=== PATIENT | male | born 1980 | race Two or more races ===

== ENCOUNTER 2017-07-08 09:14 | Inpatient (IN) | payer OTHER ==
[~2017-07-08] VITALS: Ht 181.6 cm; Wt 135.6 kg
--- NOTE | 2017-07-08 | NUR ---
RN OPEN NOTES RECEIVED PATIENT AWAKE IN BED. A/O 4. NO SIGNS OF DISTRESS OR DISCOMFORT. BREATHING EVEN AND UNLABORED. NO IV ACCESS. BED IN LOW LOCKED POSITION WITH SIDE RAILS X2. CALL LIGHT WITHIN REACH. WILL CONTINUE TO MONITOR. Addendum: 07/09/17 at 0159 by TIMO MCRAE RN ERROR WRONG TIME DOCUMENTED
[2017-07-08 14:20] VITALS: BP 108/72
--- NOTE | 2017-07-08 14:20 | NUR ---
CLINICAL TRIAL ADMISSION NOTES ADMITTED PT FOR CLINICAL TRIAL.PT IS ALERT AND ORIENTED X4.VERBALLY RESPONSIVE.SKIN INTACT.AMBULATES AD [place].ORIENTED TO HIS ROOM AND HOSPITAL POLICIES.BELONGINGS CHECKED AND ALL MEDS BROUGHT TO THE PHARMACY.DENIES ANY DISTRESS.PT IS PLEASANT TO STAFF WITHOUT ANY SUICIDAL IDEATIONS.CALL LIGHT PLACED WITHIN REACH.
[2017-07-08 16:00] VITALS: BP 108/72
[2017-07-08] MEDS: CHOLECALCIFEROL 1,000 UNIT TABLET (VIT D3) PO SCH (16:30)
[2017-07-08] MEDS ORDERED: MAGNESIUM HYDROXIDE 30 ML UDC PO PRN (17:00)
[2017-07-08] MEDS ORDERED: LORAZEPAM 1 MG TABLET FOR AGITATION PO PRN (17:00)
[2017-07-08] MEDS ORDERED: IBUPROFEN 200 MG TABLET PO PRN (17:00)
[2017-07-08] MEDS ORDERED: MAG HYDROX/AL HYDROX/SIMETH 30 ML UDC PO PRN (17:00)
[2017-07-08] MEDS ORDERED: ACETAMINOPHEN ES 500 MG TABLET PO PRN (17:00)
--- NOTE | 2017-07-08 18:00 | NUR ---
PT WALKING ALONG THE HALLWAY DENYING ANY PAIN OR DISTRESS.SEEN BY DR OLMOS WITH NO NEW ORDERS.
--- NOTE | 2017-07-08 18:05 | NUR ---
PT REFUSED VITAMIN D PO SAYING HE ALREADY TOOK ONE THIS AM.
--- NOTE | 2017-07-08 19:25 | NUR ---
RN OPEN NOTES RECEIVED PATIENT AWAKE IN BED. A/O 4. NO SIGNS OF DISTRESS OR DISCOMFORT. BREATHING EVEN AND UNLABORED. NO IV ACCESS. BED IN LOW LOCKED POSITION WITH SIDE RAILS X2. CALL LIGHT WITHIN REACH. WILL CONTINUE TO MONITOR.
[2017-07-08 20:00] VITALS: BP 114/72
[2017-07-08] MEDS: OLANZAPINE 10 MG TABLET PO SCH (21:52)
[2017-07-08] MEDS: risperiDONE 1 MG TABLET PO SCH (21:52)
[2017-07-08] MEDS ORDERED: ZOLPIDEM TARTRATE 10 MG TABLET PO PRN (22:00)
[2017-07-08] MEDS ORDERED: SERTRALINE HCL 50 MG TABLET PO SCH (22:00)
--- NOTE | 2017-07-09 06:58 | NUR ---
RN CLOSING NOTES PATIENT RESTING IN BED. A/O 4. NO SIGNS OF DISTRESS OR DISCOMFORT. BREATHING EVEN AND UNLABORED. NO IV ACCESS. ALL NEEDS MET. NO SIGNIFICANT CHANGES THROUGH THE NIGHT. BED IN LOW LOCKED POSITION WITH SIDE RAILS X2. CALL LIGHT WITHIN REACH. WILL ENDORSE TO AM SHIFT FOR GITA.
[2017-07-09 08:00] VITALS: BP 106/69
--- NOTE | 2017-07-09 08:00 | NUR ---
MS RN CLINICAL TRIAL AM NOTES PATIENT RESTING IN BED. A/OX4. NO SIGNS OF DISTRESS OR DISCOMFORT. BREATHING EVEN AND UNLABORED. NO IV ACCESS. COMPLIANT WITH HOSPITAL RULES AND REGULATIONS.TOOK A SHOWER.NEEDS MET. BED IN LOW LOCKED POSITION WITH SIDE RAILS X2. CALL LIGHT WITHIN REACH.
[2017-07-09] MEDS ORDERED: RISP0.253 PO (09:23)
[2017-07-09] MEDS ORDERED: SERT100T12 PO (09:23)
[2017-07-09] MEDS ORDERED: OLAN20TA3 PO (09:23)
[2017-07-09] MEDS ORDERED: BENZ1TAB7 PO (09:23)
[2017-07-09] MEDS: CHOLECALCIFEROL 1,000 UNIT TABLET (VIT D3) PO SCH (09:49)
[2017-07-09] MEDS: MULTIVITAMINS,THERAGRAN 1 UDTAB TABLET PO SCH (09:49)
[2017-07-09] MEDS: BENZTROPINE MESYLATE (1 MG) 1 MG TABLET PO SCH ×2 (09:49→17:46)
[2017-07-09 16:00] VITALS: BP 112/64
--- NOTE | 2017-07-09 18:00 | NUR ---
PT PLEASANT AND COMPLIANT WITH STAFF .
--- NOTE | 2017-07-09 19:50 | NUR ---
RN OPENING NOTES RECEIVED REPORT FROM DAYSHIFT TAYLOR MARCOS. FOUND Pt AWAKE, WATCHING TV. NO S/S OF ACUTE DISTRESS OR SOB NOTED. Pt IS A/OX4, VERBAL, ABLE TO MAKE NEEDS KNOWN. NO IV ACCESS. HERE FOR CLINICAL TRIALS. SAFETY MEASURES IN PLACE. BED LOW, LOCKED, HOB ELEVATED, SIDE RAILS UP, CALL LIGHT AND BEDSIDE TABLE WITHIN REACH. WILL CONTINUE TO MONITOR Pt THROUGHOUT THE NIGHT FOR SAFETY.
[2017-07-09 20:00] VITALS: BP 124/70
[2017-07-09 21:00] VITALS: BP 124/70
[2017-07-09] MEDS: risperiDONE 1 MG TABLET PO SCH (21:13)
[2017-07-09] MEDS: OLANZAPINE 10 MG TABLET PO SCH (21:14)
--- NOTE | 2017-07-10 06:55 | NUR ---
RN CLOSING NOTES NO SIGNIFICANT CHANGES NOTED DURING THE NIGHT. NO S/S OF ACUTE DISTRESS OR SOB NOTED DURING SHIFT. ALL NEEDS MET AND ATTENDED TO. SAFETY MEASURES IN PLACE. WILL ENDORSE TO DAYSHIFT RN FOR Pt's GITA.
--- NOTE | 2017-07-10 07:25 | NUR ---
MS RN OPENING NOTES RECEIVED PT FROM NIGHTSHIFT NURSE IN STABLE CONDITION. PT IS A/O X3. NO SOB OR SIGNS OF DISTRESS NOTED. BREATHING IS EVEN AND UNLABORED. PT DENIES ANY PAIN AT THIS TIME. BED IN LOW LOCKED POSITION . SIDE RAILS UP X2, CALL LIGHT WITHIN REACH. WILL CONTINUE TO MONITOR
[2017-07-10 08:00] VITALS: BP 126/73
[2017-07-10] MEDS: MULTIVITAMINS,THERAGRAN 1 UDTAB TABLET PO SCH (09:45)
[2017-07-10] MEDS: BENZTROPINE MESYLATE (1 MG) 1 MG TABLET PO SCH ×2 (09:45→17:18)
[2017-07-10] MEDS: CHOLECALCIFEROL 1,000 UNIT TABLET (VIT D3) PO SCH (09:45)
[2017-07-10 16:00] VITALS: BP 99/67
--- NOTE | 2017-07-10 18:53 | NUR ---
MS RN CLOSING NOTES ALL DUE MED GIVEN AND ORDERS CARRIED OUT ACCORDINGLY. NO ACUTE CHANGES IN CONDITION SINCE START OF SHIFT. WILL ENDORSE TO NIGHTSHIFT NURSE FOR GITA
--- NOTE | 2017-07-10 19:35 | NUR ---
rn initial notes: received report from rn afsatu, pt in bed, awake, a/o x3, respiration even and unlabored, denies any pain or discomfort at this time, no iv access per md, pt on clinical trial, wearing own clothes, safety precautions for fall initiated call light in reach, will continue to monitor
[2017-07-10 20:00] VITALS: BP 115/66
[2017-07-10] MEDS: risperiDONE 1 MG TABLET PO SCH (21:53)
[2017-07-10] MEDS: OLANZAPINE 10 MG TABLET PO SCH (21:53)
--- NOTE | 2017-07-10 22:00 | NUR ---
rn notes: pt denies any plan of hurting himself, medication compliant
--- NOTE | 2017-07-11 06:53 | NUR ---
rn closing notes: pt in bed, awake, remains calm cooperative and med compliant, pt admit to still having v/a hallucination, denies any si. needs attended. total hours of sleep is 8hrs. vs remains stable, needs attended. safety precautions for fall remains engaged, call light in reach, will endorse to day rn for eleni.
--- NOTE | 2017-07-11 07:21 | NUR ---
MS RN OPENING NOTES RECEIVED PT FROM NIGHTSHIFT NURSE IN STABLE CONDITION. PT IS A/O X3. NO SOB OR SIGNS OF DISTRESS NOTED. BREATHING IS EVEN AND UNLABORED. PT IS SLEEPING AT THIS TIME BUT IS EASILY AROUSABLE. HE DENIES ANY PAIN AT THIS TIME. BED IN LOW LOCKED POSITION, SIDE RAILS UP X2, CALL LIGHT WITHIN REACH. WILL CONTINUE TO MONITOR
[2017-07-11 08:00] VITALS: BP 121/71
[2017-07-11] MEDS: MULTIVITAMINS,THERAGRAN 1 UDTAB TABLET PO SCH (09:04)
[2017-07-11] MEDS: BENZTROPINE MESYLATE (1 MG) 1 MG TABLET PO SCH ×2 (09:04→17:54)
[2017-07-11] MEDS: CHOLECALCIFEROL 1,000 UNIT TABLET (VIT D3) PO SCH (09:04)
[2017-07-11 20:00] VITALS: BP 114/68
--- NOTE | 2017-07-11 20:00 | NUR ---
RN NOTES RECEIVED PT AWAKE ON BED, A/OX3, CALM AND COOPERATIVE, PLEASANT TO TALKED TOO, DENIES PAIN,CALL LIGHT WITHIN REACH, SDIERAILS PX2 CONTINUE TO MONITOR
[2017-07-11] MEDS: OLANZAPINE 5 MG TABLET PO SCH (21:33)
[2017-07-11] MEDS: risperiDONE 1 MG TABLET PO SCH (21:33)
--- NOTE | 2017-07-12 07:00 | NUR ---
RN NOTES SLEEPING BUT AROUSABLE, DENIES PAIN, NO SOB, CALM AND COOPERATIVE, PT. NEEDS ATTENDED
--- NOTE | 2017-07-12 07:30 | NUR ---
MS/RN Patient received Patient received from tie bucker. No needs at this time, call light within reach, will continue to monitor and ensure safety.
[2017-07-12 08:00] VITALS: BP 123/68
[2017-07-12] MEDS: BENZTROPINE MESYLATE (1 MG) 1 MG TABLET PO SCH ×2 (08:02→16:18)
[2017-07-12] MEDS: CHOLECALCIFEROL 1,000 UNIT TABLET (VIT D3) PO SCH (08:02)
[2017-07-12] MEDS: MULTIVITAMINS,THERAGRAN 1 UDTAB TABLET PO SCH (08:02)
[2017-07-12 08:25] VITALS: BP 123/68
--- NOTE | 2017-07-12 08:41 | NUR ---
MS/RN Medications Morning medications administered as ordered.
--- NOTE | 2017-07-12 13:51 | NUR ---
MS/RN Behavior No behavior issues or concerns, will continue to monitor.
[2017-07-12 16:00] VITALS: BP 132/72
[2017-07-12 16:42] VITALS: BP 132/72
--- NOTE | 2017-07-12 18:04 | NUR ---
MS/RN End note No changes in plan of care. Behavior has remained appropriate, no outbursts or concerns. Will continue to monitor and endorse to manganese heater.
[2017-07-12 20:00] VITALS: BP 133/81
--- NOTE | 2017-07-12 20:00 | NUR ---
RN NOTES PATIENT IS ALERT AND ORIENTED X4, CALM, NO SOB, NO RESPIRATORY DISTRESS, HEARING VOICES AT THIS TIME, PER PATIENT NOT BOTHERING MUCH, WITH EPISODE OF VISUAL HALLUCINATIONS. NONE MENTIONED AT THIS TIME. NEEDS ATTENDED, CALL LIGHT WITHIN REACH.
--- NOTE | 2017-07-12 20:00 | NUR ---
RN NOTES SEEN BY DR. HENRIQUEZ WITH NEW ORDERS
[2017-07-12] MEDS: OLANZAPINE 5 MG TABLET PO SCH (21:35)
[2017-07-12] MEDS: risperiDONE 1 MG TABLET PO SCH (21:35)
--- NOTE | 2017-07-13 06:49 | NUR ---
RN NOTES PATIENT IS AWAKE AND ALERT, NO SOB, DENIES ABDOMINAL PAIN AT THIS TIME, NEEDS ATTENDED, CALL LIGHT WITHIN REACH.
--- NOTE | 2017-07-13 06:49 | NUR ---
RN NOTES PATIENT IN BED, RESTING COMFORTABLY, RESPIRATION EVEN AND UNLABORED, SLEPT FOR 7 HOURS, NO BEHAVIORAL DISTURBANCE DURING SHIFT, COMPLIANT WITH MEDICATIONS. KEPT SAFE, CALL LIGHT WITHIN REACH.
--- NOTE | 2017-07-13 07:30 | NUR ---
MS/RN Patient received Patient received from manager night. No needs at this time, call light within reach, will continue to monitor and ensure safety.
[2017-07-13 08:00] VITALS: BP 125/81
[2017-07-13] MEDS: CHOLECALCIFEROL 1,000 UNIT TABLET (VIT D3) PO SCH (08:02)
[2017-07-13] MEDS: MULTIVITAMINS,THERAGRAN 1 UDTAB TABLET PO SCH (08:02)
[2017-07-13] MEDS: BENZTROPINE MESYLATE (1 MG) 1 MG TABLET PO SCH ×2 (08:02→16:48)
--- NOTE | 2017-07-13 09:14 | NUR ---
MS/RN Medications Morning medications administered as ordered, no difficulty swallowing.
--- NOTE | 2017-07-13 13:00 | NUR ---
MS/RN Behavior Behavior remains appropriate, no outbursts or concerns.
[2017-07-13 16:00] VITALS: BP 103/67
[2017-07-13 16:04] VITALS: BP 103/67
--- NOTE | 2017-07-13 18:15 | NUR ---
MS/RN End note Calm and cooperative with treatment plan, all medications administered as ordered. Will continue to monitor and endorse to welder 2nd shift. Patient informed nursing staff that while showering today, when getting up, he banged head on hand rail in bathroom. No apparent injury noted, will inform Dr Jiménez.
--- NOTE | 2017-07-13 19:33 | NUR ---
RN NOTES SEEN BY DR. OLMOS
[2017-07-13 20:00] VITALS: BP 134/83
[2017-07-13 20:04] VITALS: BP 134/83
--- NOTE | 2017-07-13 20:11 | NUR ---
RN NOTES PATIENT IN BED, WATCHING TV, ALERT AND ORIENTED X4, CALM, COOPERATIVE, PLEASANT, REPORTED BUMPING HEAD AGAINST THE WALL, ON ASSESSMENT TO BACK OF HEAD, NO REDNESS, NO BUMP NOTED, DENIES HEADACHE. REFUSED MOTRIN. SEEN BY DR. OLMOS EARLIER. DENIES VISUAL AND AUDITORY HALLUCINATIONS AT THIS TIME. REMINDED PATIENT IF HE NEEDS ANYTHING, NOTIFY THE NURSE. KEPT SAFE AND COMFORTABLE, CALL LIGHT WITHIN REACH.
[2017-07-13] MEDS: OLANZAPINE 2.5 MG TABLET PO SCH (21:59)
[2017-07-13] MEDS: risperiDONE 1 MG TABLET PO SCH (21:59)
--- NOTE | 2017-07-14 06:52 | NUR ---
RN NOTES PATIENT IN BED, RESTING COMFORTABLY IN BED, SLEPT FOR 7.5 HOURS. NO BEHAVIOR DISTURBANCE DURING SHIFT, COMPLIANT AND COOPERATIVE. KEPT SAFE AND COMFORTABLE, CALL LIGHT WITHIN REACH.
[2017-07-14 08:00] VITALS: BP 128/75
--- NOTE | 2017-07-14 08:00 | NUR ---
CLINICAL TRIAL RN AM NOTES PATIENT IS ALERT AND ORIENTED X4, CALM, NO SOB, NO RESPIRATORY DISTRESS, DENIES HEARING VOICES WITH NO EPISODE OF VISUAL HALLUCINATIONS. COMPLIANT WITH MEDS AND TX.NEEDS ATTENDED, CALL LIGHT WITHIN REACH.
[2017-07-14] MEDS: BENZTROPINE MESYLATE (1 MG) 1 MG TABLET PO SCH ×2 (08:32→17:24)
[2017-07-14] MEDS: MULTIVITAMINS,THERAGRAN 1 UDTAB TABLET PO SCH (08:32)
[2017-07-14] MEDS: CHOLECALCIFEROL 1,000 UNIT TABLET (VIT D3) PO SCH (08:32)
[2017-07-14] MEDS ORDERED: FLU VACC QS 2017-18(36MOS+)/PF 0.5 ML DISP.SYRIN IM ONE (10:30)
[2017-07-14 16:00] VITALS: BP 123/81
--- NOTE | 2017-07-14 18:57 | NUR ---
PT COMPLIANT WITH TX AND INSTRUCTED TO BE NPO AT 2100.WILL ENDORSE TO NIGHT NURSE CARE.
[2017-07-14 20:00] VITALS: BP 118/67
[2017-07-14] MEDS: OLANZAPINE 2.5 MG TABLET PO SCH (21:01)
[2017-07-14] MEDS ORDERED: risperiDONE 1 MG TABLET PO SCH (22:00)
[2017-07-15 08:00] VITALS: BP 95/70
--- NOTE | 2017-07-15 08:00 | NUR ---
CLINICAL TRIAL RN AM NOTES PATIENT IS ALERT AND ORIENTED X4, CALM, NO SOB, NO RESPIRATORY DISTRESS, DENIES HEARING VOICES WITH NO EPISODE OF VISUAL HALLUCINATIONS.PT ON NPO FOR LAB TEST. COMPLIANT WITH TX.WILL MONITOR.CALL LIGHT WITHIN REACH.
[2017-07-15] MEDS ORDERED: INVEST MED MK-8189 MISC 1 CAP EA PO SCH (09:00)
[2017-07-15] MEDS ORDERED: INVEST MED MK-8189 MISC 1 TAB EA PO SCH (09:00)
--- NOTE | 2017-07-15 10:30 | NUR ---
PT WAS SEEN BY DR OLMOS AND WAS INTERVIEWED BY THE [facility]-PT DIDN'T MEET THE CRITERIA FOR THE STUDY WITH ORDERS MADE AND CARRIED OUT.PT WILL BE DISCHARGE THIS WEDNESDAY.
[2017-07-15] MEDS: CHOLECALCIFEROL 1,000 UNIT TABLET (VIT D3) PO SCH (10:39)
[2017-07-15] MEDS: MULTIVITAMINS,THERAGRAN 1 UDTAB TABLET PO SCH (10:39)
[2017-07-15] MEDS ORDERED: LORAZEPAM 1 MG TABLET FOR AGITATION PO PRN (12:00)
[2017-07-15 16:00] VITALS: BP 122/78
[2017-07-15] MEDS: BENZTROPINE MESYLATE (1 MG) 1 MG TABLET PO SCH (16:50)
--- NOTE | 2017-07-15 17:06 | NUR ---
PT EXPRESSED SADNESS OF BEING DISCHARGED THIS WEDNESDAY.EMOTIONAL SUPPORT AND ACTIVE LISTENING GIVEN.CONTINUES TO HAVE GOOD APPETITE WITH SNACKS,WILL CONTINUE TO MONITOR.
--- NOTE | 2017-07-15 19:30 | NUR ---
MS RN NOTES RECEIVED SITTING ON BED A/O X4,BREATHING REGULAR,NOT IN ANY FORM DISTRESS.ON CLINICAL TRIAL FOR MEDS,NO IV ACCESS.UNDERSTAND TREATMENT PLAN,CALL LIGHT IN REACH,NEEDS ANTICIPATED.
[2017-07-15 20:00] VITALS: BP 109/66
[2017-07-15 20:27] VITALS: BP 109/66
[2017-07-15] MEDS ORDERED: BENZTROPINE MESYLATE (1 MG) 1 MG TABLET PO ONE (22:00)
[2017-07-15] MEDS ORDERED: SERTRALINE HCL 50 MG TABLET PO ONE (22:00)
[2017-07-15] MEDS ORDERED: OLANZAPINE 10 MG TABLET PO ONE (22:00)
[2017-07-15] MEDS ORDERED: risperiDONE 1 MG TABLET PO ONE (22:00)
--- NOTE | 2017-07-15 22:00 | NUR ---
MS RN NOTES DUE PO MEDS ADMINISTERED.PATIENT COMPLIANT WITH MEDS.
--- NOTE | 2017-07-16 | NUR ---
RN NOTES RECEIVED PATIENT UP ON CHAIR, PREOCCUPIED WITH PHONE, NO SOB, NO RESPIRATORY DISTRESS, DENIES ANY PAIN, DENIES AUDITORY AND VISUAL HALLUCINATIONS. FLAT AFFECT, ANSWERS QUESTIONS APPROPRIATELY. NEEDS ATTENDED, WILL CONTINUE TO MONITOR.
--- NOTE | 2017-07-16 06:35 | NUR ---
MS RN NOTES SLEPT 7.5 HOURS AT NIGHT,MED COMPLIANT,FOR D/C ON WEDNESDAY FOR HE DIDNT MET CLINICAL TRIAL STUDY
[2017-07-16 08:00] VITALS: BP 112/78
--- NOTE | 2017-07-16 08:00 | NUR ---
CLINICAL TRIAL RN AM NOTES PATIENT IS ALERT AND ORIENTED X4, CALM, NO SOB, NO RESPIRATORY DISTRESS, DENIES HEARING VOICES WITH NO EPISODE OF VISUAL HALLUCINATIONS.COMPLIANT WITH TX.WILL MONITOR.CALL LIGHT WITHIN REACH.
[2017-07-16] MEDS: CHOLECALCIFEROL 1,000 UNIT TABLET (VIT D3) PO SCH (09:08)
[2017-07-16] MEDS: BENZTROPINE MESYLATE (1 MG) 1 MG TABLET PO SCH ×2 (09:08→17:35)
[2017-07-16] MEDS: MULTIVITAMINS,THERAGRAN 1 UDTAB TABLET PO SCH (09:08)
[2017-07-16 16:00] VITALS: BP 112/73
[2017-07-16 20:00] VITALS: BP 133/76
[2017-07-16] MEDS ORDERED: risperiDONE 1 MG TABLET PO SCH (22:00)
[2017-07-16] MEDS ORDERED: OLANZAPINE 10 MG TABLET PO SCH (22:00)
[2017-07-16] MEDS ORDERED: SERTRALINE HCL 50 MG TABLET PO SCH (22:00)
--- NOTE | 2017-07-17 06:53 | NUR ---
RN NOTES PATIENT IN BED, RESTING COMFORTABLY, NO DISTRESS, NO BEHAVIOR DISTURBANCE DURING SHIFT. COOPERATIVE AND CALM, SLEPT FOR 7 HOURS, NEEDS ATTENDED, CALL LIGHT WITHIN REACH.
[2017-07-17 08:00] VITALS: BP 123/81
--- NOTE | 2017-07-17 08:21 | NUR ---
RN NOTES RECEIVED PT. PT IS STABLE AND RESTING IN BED. A/OX4. NO S/S OF DISTRESS, SOB OR PAIN. NO S/S OF BEHAVIORAL DISTURBANCE. PT IS SCHEDULED FOR D/C TODAY, AWAITING D/C ORDER PER DR. OLMOS. SAFETY MEASURES IN PLACE, CALL LIGHT WITHIN REACH. WILL CONTINUE TO MONITOR.
[2017-07-17] MEDS: CHOLECALCIFEROL 1,000 UNIT TABLET (VIT D3) PO SCH (08:53)
[2017-07-17] MEDS: BENZTROPINE MESYLATE (1 MG) 1 MG TABLET PO SCH (08:53)
[2017-07-17] MEDS: MULTIVITAMINS,THERAGRAN 1 UDTAB TABLET PO SCH (08:53)
--- NOTE | 2017-07-17 15:10 | NUR ---
DISCHARGE NOTE PT DISCHARGED TO HOME PER ORDER BY DR. OLMOS. D/C DUE TO NOT QUALIFYING FOR CLINICAL TRIAL. D/C TEACHING PERFORMED, PT VERBALIZED UNDERSTANDING. NO S/S OF DISTRESS, SOB, PAIN, OR BEHAVIORAL ISSUE. VSS AND WNL. ALL D/C DOCUMENTATION SIGNED AND COPIED. BELONGINGS LIST SIGNED AND COPIED. PT GIVEN D/C [facility] AND ALL RELEVANT HEALTH CARE INFORMATION. PT WAS PICKED UP BY [facility] [employer].
[2017-07-18] MEDS ORDERED: INVEST MED MK-8189 MISC 2 TAB EA PO SCH (09:00)
[2017-07-18] MEDS ORDERED: INVEST MED MK-8189 MISC 2 CAP EA PO SCH (09:00)
[2017-07-21] MEDS ORDERED: INVEST MED MK-8189 MISC 3 CAP EA PO SCH (09:00)
[2017-07-21] MEDS ORDERED: INVEST MED MK-8189 MISC 3 TAB EA PO SCH (09:00)
[2017-07-22] MEDS ORDERED: LORAZEPAM 1 MG TABLET FOR AGITATION PO PRN (12:00)
[2017-07-29] MEDS ORDERED: LORAZEPAM 1 MG TABLET FOR AGITATION PO PRN (12:00)
[2017-08-05] MEDS ORDERED: LORAZEPAM 1 MG TABLET FOR AGITATION PO PRN (12:00)
[2017-08-12] MEDS ORDERED: LORAZEPAM 1 MG TABLET FOR AGITATION PO PRN (12:00)
== END 2017-07-17 13:26 | disposition home or self-care (01) | DRG 951 ==
LOC: MEDSG2 13:57
PROVIDERS: ADMIT Psychiatry & Neurology Psychiatry; ATTEND Psychiatry & Neurology Psychiatry
DX: Z00.6 Encounter for examination for normal comparison and control in clinical research program (principal); F20.0 Paranoid schizophrenia; G47.00 Insomnia, unspecified; Z79.899 Other long term (current) drug therapy; Z80.3 Family history of malignant neoplasm of breast; Z81.8 Family history of other mental and behavioral disorders; D64.9 Anemia, unspecified
CPT/HCPCS: 87081-TC; Q2036; Z7610